=== PATIENT | male | born 1970 | race Two or more races ===

== ENCOUNTER 2024-09-15 13:44 | Inpatient (IN) | payer MEDICAID, OTHER ==
[~2024-09-15] VITALS: Ht 172.7 cm; Wt 79.0 kg
--- NOTE | 2024-09-15 14:47 | ED.PDOC ---
SOB-HPI HPI Comments 54 Y M, presents to the ED with CC of shortness of breath. Patient states that he has been experiencing SOB, with associated chest tightness x3day. Patient describes, the chest pain as tightness that gets worse with light exertion such as walking. Patient states, that he was just diagnosed with a blood clot at [facility] a week ago; and is currently taking Eliquis. Patient denies any fever, chills, body aches, abdominal pain, or N/V/D. Time Seen by MD: 02:00 Reviewed notes: Nurses Notes, Medications, Allergies Information Source: Patient Mode of Arrival: Ambulatory Severity: Mild Timing: Days Duration: Since onset Context: With Light Exertion History of: None Prehospital treatment: None Modifying Factors: Exertion Associated Signs and Symptoms: Chest Pain Quality: Tightness Radiation: No Radiation Past Medical History PAST MEDICAL HISTORY: Denies Surgical History: Denies all surgeries Family History Family History: Unknown Social History Smoker: Quit Less Than 1 Year Alcohol: Denies ETOH Use Drugs: Denies Drug Use Lives In: Home Constitutional: denies: chills, diaphoresis, fatigue, fever, malaise, sweats, weakness, others EENTM: denies: blurred vision, double vision, ear bleeding, ear discharge, ear drainage, ear pain, ear ringing, eye pain, eye redness, hearing loss, mouth pain, mouth swelling, nasal discharge, nose bleeding, nose congestion, nose pain, photophobia, tearing, throat pain, throat swelling, voice changes, others Respiratory: reports: shortness of breath; denies: cough, hemoptysis, orthopnea, SOB at rest, SOB with excertion, stridor, wheezing, others Cardiovascular: reports: chest pain; denies: dizzy spells, diaphoresis, Dyspnea on exertion, edema, irregular heart beat, left arm pain, lightheadedness, palpitations, PND, syncope, others Gastrointestinal: denies: abdomen distended, abdominal pain, blood streaked bowels, constipated, diarrhea, dysphagia, difficulty swallowing, hematemesis, melena, nausea, poor appetite, poor fluid intake, rectal bleeding, rectal pain, vomiting, others Genitourinary: denies: burning, dysuria, flank pain, frequency, hematuria, incontinence, penile discharge, penile sore, pain, testicle pain, testicle swelling, urgency, others Neurological: denies: dizziness, fainting, headache, left sided numbness, left sided weakness, numbness, paresthesia, pre-existing deficit, right sided numbness, right sided weakness, seizure, speech problems, tingling, tremors, weakness, others Musculoskeletal: denies: back pain, gout, joint pain, joint swelling, muscle pain, muscle stiffness, neck pain, others Integumetry: denies: bruises, change in color, change in hair/nails, dryness, laceration, lesions, lumps, rash, wounds, others Allergic/Immunocompromised: denies: Difficulty Healing, Frequent Infections, Hi ves, Itching, others Hematologic/Lymphatic: denies: anemia, blood clots, easy bleeding, easy bruising, swollen glands, others Endocrine: denies: excessive hunger, excessive sweating, excessive thirst, excessive urination, flushing, intolerance to cold, intolerance to heat, unexplained weight gain, unexplained weight loss, others Psychiatric: denies: anxiety, bipolar disorder, depression, hopeless, panic disorder, schizophrenia, sleepless, suicidal, others All Other Systems: Reviewed and Negative Physical Exam General Appearance: Moderate Distress, Normal HEENT: Normal ENT Inspection, Pharynx Normal, TMs Normal Neck: Full Range of Motion, Non-Tender, Normal, Normal Inspection Respiratory: Chest Non-Tender, No Accessory Muscle Use, Other (Coarse breath sounds) Cardiovascular: No Edema, No JVD, No Murmur, No Gallop, Normal Peripheral Pulses, Regular Rate/Rhythm Breast Exam: Deferred Gastrointestinal: No Organomegaly, Non Tender, No Pulsatile Mass, Normal Bowel Sounds, Soft Genitalia: Deferred Pelvic: Deferred Rectal: Deferred Extremities: No calf tenderness, Normal capillary refill, Normal inspection, Normal range of motion, Non-tender, No pedal edema Musculoskeletal : Apperance: Normal Neurologic: Alert, 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 Was a procedure done?: No Differential Dx Differential Diagnosis: Anxiety, Asthma, Bronchitis, CHF, Hypertension, Pharyng itis, URI X-Ray, Labs, Meds, VS Vital Signs Date Time Temp Pulse Resp B/P (MAP) Pulse Ox O2 Delivery O2 Flow Rate FiO2 09/15/24 14:28 98.9 117 18 107/67 (80) 95 09/15/24 14:28 18 95 Room Air* 0 21 Lab Test 09/15/24 14:24 Range/Units White Blood Count Pending Red Blood Count Pending Hemoglobin Pending Hematocrit Pending Mean Corpuscular Volume Pending Mean Corpuscular Hemoglobin Pending Mean Corpuscular Hemoglobin Concent Pending Red Cell Distribution Width Pending Platelet Count Pending Mean Platelet Volume Pending Neutrophils (%) (Auto) Pending Lymphocytes (%) (Auto) Pending Monocytes (%) (Auto) Pending Basophils (%) (Auto) Pending Neutrophils # (Auto) Pending Lymphocytes # (Auto) Pending Monocytes # (Auto) Pending D-Dimer, Quantitative Pending Sodium Level Pending Potassium Level Pending Chloride Level Pending Carbon Dioxide Level Pending Anion Gap Pending Blood Urea Nitrogen Pending Creatinine Pending Glomerular Filtration Rate Calc Pending BUN/Creatinine Ratio Pending Serum Glucose Pending Calcium Level Pending Troponin I High Sensitivity Pending Patient alert. Continues to have shortness a breath. Tachycardia. Saturation pristine on room air. History of PE. Is taking blood thinner. Possibly will need CT angiogram. He is having increasing shortness a breath. Explained to the patient. Continue cardiac monitoring. Time of 1ST Reevaluation: 02:30 Reevaluation 1ST: Unchanged Patient Education/Counseling: Diagnosis, Treatment Family Education/Counseling: No Family Present Departure 1 Departure Time of Disposition: 14:54 Impression: Primary Impression: Pulmonary embolus Qualified Codes: I26.99 - Other pulmonary embolism without acute cor pulmonale Additional Impression: COPD (chronic obstructive pulmonary disease) Qualified Codes: J44.1 - Chronic obstructive pulmonary disease with (acute) exacerbation Disposition: ADMITTED INPATIENT Admit to: Med Surg Condition: Guarded Critical Care Note Critical Care Time?: Yes (45 min-critical care time only) Stability Stability form required: No Heart Score Heart Score: Heart Score Response (Comments) Value History N/A 0 EKG N/A 0 Age N/A 0 Risk Factors N/A 0 Troponin N/A 0 Total 0 I personally scribed for MARK CAMARILLO MD ([email or web address]) on 09/15/24 at 14:47. Electronically submitted by Nga Brito ([email or web address]). MARK CAMARILLO MD Sep 15, 2024 14:47
[2024-09-15 14:55] LABS: Hematocrit 16.4 % (41.0-53.0); Mean Corpuscular Hemoglobin 34.4 pg (28.0-32.0); Mean Corpuscular Hgb Conc. 34.3 g/dL (32.0-36.0); Mean Corpuscular Volume 100.2 fL (80.0-100.0); Platelet Count (auto) 113 10^3/uL (140-450); Red Blood Cells 1.64 10^6/uL (4.5-5.90); Red Cell Distribution Width 19.5 % (11.8-14.3)
[2024-09-15 14:59] LABS: Chloride 99 mmol/L (98-107); Potassium 4.6 mmol/L (3.5-5.1)
[2024-09-15 15:00] LABS: Anion Gap 9 (5-15); Calcium 9.4 mg/dL (8.7-10.4); Carbon Dioxide 25 mmol/L (20-31)
[2024-09-15 15:05] LABS: Blood Urea Nitrogen 21 mg/dL (9-23); Glucose 102 mg/dL (74-106); Sodium 133 mmol/L (136-145)
[2024-09-15 15:23] LABS: Hemoglobin 5.6 g/dL (13.5-17.5); White Blood Cell 178.3 10^3/uL (4.4-10.8)
[2024-09-15 15:24] LABS: Band Neutrophils % (manual) 0; Basophils % (manual) 0 (0.0-2.0); Eosinophils % (manual) 0 (0-7); Metamyelocytes % 0; Promyelocytes % 0; Reactive Lymphocytes 0
[2024-09-15] MEDS: SODIUM CHLORIDE 0.9% 1,000 ML IV ONE ×2 (15:53→16:17)
[2024-09-15 16:03] VITALS: PULSE 104; RESP 18; O2SAT 95
[2024-09-15] MEDS: SULFAMETH-TRIMETH 80/16MG-ML 15 ML in D5W 5% 500 ML IV ONE (16:55)
[2024-09-15 17:05] LABS: Blast Cells 28; Lymphocytes % (manual) 36 (10.0-50.0); Monocytes % (manual) 15 (0-12); Myelocytes % 11
--- NOTE | 2024-09-15 17:07 | DVH ---
INDICATION: pe Comparison: None available TECHNIQUE: Multidetector CTA of the chest was performed of the chest with 100 cc of intravenous contr ast. PULMONARY ANGIOGRAPHY PROTOCOL was utilized using a bolus-tracking technique centered on the jase n pulmonary artery. Axial, coronal and sagittal multiplanar and MIP reformats were performed. Radiation Dose Information: CT Dose: CTDI volume is 14.48 mGy. Dose-length product is 561.05 mGy*cm The dose indicators for CT are the volume Computed Tomography (CT) Dose Index (CTDIvol) and the Dose Length Product (DLP), and are measured in units of mGy and mGy-cm, respectively. These indicators are not patient dose, but values generated from the CT scanner acquisition factors. The report includes radiation exposure data for exposures received during this examination. Findings: Pulmonary artery: Normal caliber of the pulmonary artery. No large central or large segmental pulmo nary embolism. Lower neck: Normal thyroid. Lungs: No focal consolidation. Left lower lobe 0.8 cm ground-glass nodule. Subtle tree-in-bud type o pacity at the inferior aspect of the right upper lobe. Heart/Vascular Structures: Normal heart size. Normal caliber and enhancement of the aorta. Lymph Nodes: Mediastinal, right hilar, and bilateral axillary lymphadenopathy. Pleura: No pleural effusion or significant pneumothorax. Musculoskeletal: No acute osseous abnormality. Upper abdomen: Small hiatal hernia.. IMPRESSION: 1. No pulmonary embolism. 2. No thoracic aortic dissection or aneurysm. 3. Left lower lobe ground-glass nodule measuring 0.8 cm. Recommend follow-up CT at 6-12 months per Fl eischner criteria. 4. Right upper lobe tree-in-bud type opacities, most suggestive of infectious / inflammatory etiology . 5. Mediastinal, right hilar, and bilateral axillary lymphadenopathy. Could be reactive, with malignan cy not excluded. 6. Small hiatal hernia. HS:Y
[2024-09-15 17:08] LABS: COVID19 ANTIGEN SOFIA FIA NEGATIVE (NEGATIVE); Rapid Influenza A Negative (Negative); Rapid Influenza B Negative (Negative)
[2024-09-15 17:10] LABS: Platelet Estimate Decreased
[2024-09-15] MEDS: ACETAMINOPHEN 500 MG TAB or CAP PO ONE (17:35)
[2024-09-15] MEDS: IBUPROFEN 800 MG TAB PO ONE (19:02)
--- NOTE | 2024-09-15 19:02 | DVHSR ---
APPROVED REPORT EXAM: Two-dimensional and M-mode echocardiogram with Doppler and color Doppler. Blood Pressure: 107/67 mmHg INDICATION PE RISK FACTORS Height: 68, Weight: 174 DIMENSIONS LVDd4.9 (3.8-5.7cm)LA (2D)4.1 (1.9-4.0cm)Aortic Root3.6 (2.0-3.7cm) LVDs3.1 (2.5-4.0cm)LA (MM) (1.9-4.0cm)Aortic Cusp Exc1.9 (1.5-2.0cm) EF (%) 66.0 (55-70%)Rt. Atrium3.5 (1.9-4.0cm)Asc. Aorta cm IVSd1.1 (0.7-1.1cm)RV (D) (1.8-2.4cm) PWd1.1 (0.7-1.1cm) Mitral Valve MitralMitral Stenosis E wave1.41m/sMV Mean GR.mmHg A wave0.90m/sMV Peak GR.82mmHg E/A ratio1.62D MVAcm2 DECEL [id number] 1/2 Timems Aortic Valve Aortic ValveAortic Stenosis V11.33m/Anika Mean GR.7mmHg V21.81m/Anika Peak GR.13mmHg LVOT Diameter2.3 (1.8-2.4cm)Doppler AVA3.05cm2 Pulmonic Valve V21.34m/s Tricuspid Valve TR Velocity2.82m/s [id number] LEFT VENTRICLE The left ventricle is normal size. There is normal left ventricular wall thickness. Left ventricle systolic function is normal. The Ejection Fraction is 60-65%. No regional wall motion abnormalities. RIGHT VENTRICLE The right ventricle structure and function is normal. ATRIA The left atrium is borderline dilated. The right atrium size is normal. MITRAL VALVE The mitral valve is normal in structure and function. Mitral regurgitation is trace to mild. PULMONIC VALVE The pulmonic valve is normal in structure and function. TRICUSPID VALVE The tricuspid valve is normal in structure and function. There is trace to mild tricuspid regurgitation. Right ventricular systolic pressure is 40-50 mmHg. AORTIC VALVE The aortic valve is trileaflet. No aortic regurgitation is present. No significant aortic valve stenosis. GREAT VESSELS The aortic root is normal size. PERICARDIAL EFFUSION There is a no pericardial effusion. Conclusion Left ventricle size and systolic function are normal. The right ventricle structure and function are normal. No significant valvular disease. PA systolic pressure is estimated at 42 mmHg.
[2024-09-15 19:30] VITALS: PULSE 89; RESP 18; O2SAT 95
[2024-09-15] MEDS ORDERED: VANCOMYCIN PER PHARMACY 0 MG IV SCH (22:15)
[2024-09-15] MEDS ORDERED: NITROGLYCERIN 0.4 MG SL TAB SL PRN (22:15)
[2024-09-15] MEDS ORDERED: MORPHINE SULFATE INJ 2 MG/ml SYRG IV PRN (22:15)
[2024-09-15] MEDS ORDERED: ONDANSETRON HCL 4 MG/2 ML VIAL IV PRN (22:15)
[2024-09-15] MEDS ORDERED: DOCUSATE SOD 100 MG CAP PO PRN (22:15)
[2024-09-15 22:22] VITALS: BP 95/68; PULSE 86; RESP 21; TEMP 98.8
[2024-09-15 22:42] VITALS: BP 106/67; PULSE 83; RESP 15; TEMP 98.2
[2024-09-15] MEDS ORDERED: VANCOMYCIN 1GM/250mL NS or D5W KIT IV SCH (22:45)
[2024-09-15 22:52] LABS: Hematocrit 15.6 % (41.0-53.0); Mean Corpuscular Hemoglobin 32.7 pg (28.0-32.0); Mean Corpuscular Hgb Conc. 32.4 g/dL (32.0-36.0); Platelet Count (auto) 78 10^3/uL (140-450); Red Blood Cells 1.55 10^6/uL (4.5-5.90); Red Cell Distribution Width 19.9 % (11.8-14.3)
[2024-09-15 23:00] LABS: Hemoglobin 5.1 g/dL (13.5-17.5)
[2024-09-15 23:01] LABS: Band Neutrophils % (manual) 0; Basophils % (manual) 0 (0.0-2.0); Eosinophils % (manual) 0 (0-7); Metamyelocytes % 0; Myelocytes % 0; Promyelocytes % 0; Reactive Lymphocytes 0; White Blood Cell 158.7 10^3/uL (4.4-10.8)
[2024-09-16] VITALS (24 sets, daily range): BP systolic 92–116; BP diastolic 54–82; PULSE 75–113; RESP 11–26; TEMP 97.5–98.9; O2SAT 91–100
[2024-09-16] MEDS: SODIUM CHLORIDE 0.9% 1,000 ML IV SCH (00:05)
[2024-09-16 00:21] LABS: Platelet Estimate Decreased
[2024-09-16 00:22] LABS: Anisocytosis Slight; Blast Cells 79; Lymphocytes % (manual) 13 (10.0-50.0); Monocytes % (manual) 3 (0-12); Stomatocytes Few
[2024-09-16 00:23] LABS: Macrocytosis Slight
--- NOTE | 2024-09-16 01:20 | DVHHP2 ---
[facility] 09/16/24 0120: History of Present Illness Reason for Visit: Shortness of breath History of Present Illness 54-year-old male with out pertinent medical History Presents with complaints of shortness of breath and chest tightness times three days. Patient recently went on September 12, 2024 to [facility] With complaints of bilateral leg pain. At such Time Bilateral lower extremity vascular ultrasound was negative for DVT. At some point patient reported history of dvt on eliquis. During the emergency department evaluation, Lab work demonstrates W178.3,Hgb 5.6, HCT 16.4, PLT 113. CT angio of the chest Negative for PE. However does have a left lower lobe ground glass nodule; Right upper lobe tree in bud opacity, Suggesting infectious/inflammatory etiology. Patient denies past family history or personal diagnosis of cancer or leukemia. Denies nausea, vomiting, Diarrhea, hematemesis, hematochezia, melena. No previous follow up with PCP. Smoke: <1 pack per day ALCOHOL: none Drugs: None Lives: with Family Review of Systems Constitutional: Yes: Fever, Chills, Sweats, Other (Ill Appearing) Eyes: No: Pain, Vision change, Conjunctivae inflammation, Eyelid inflammation, Other, Redness ENT: No: Ear pain, Ear discharge, Nose pain, Nose discharge, Nose congestion, Mouth pain, Mouth swelling, Throat pain, Throat swelling, Other Respiratory: Shortness of breath, SOB with excertion; No: Cough, Dry, Wheezing, Hemoptysis, Pleuritic Pain, Sputum, Wheezing, Other Cardiovascular: Chest Pain; No: Palpitations, Orthopnea, Paroxysmal Noc. Dyspnea, Edema, Lt Headedness, Other Gastrointestinal: No: Nausea, Vomiting, Abdominal Pain, Diarrhea, Constipation, Melena, Hematochezia, Other Genitourinary: No Dysuria, No Frequency, No Incontinence, No Hematuria, No Retention, No Other Musculoskeletal: No: other, neck pain, shoulder pain, arm pain, back pain, hand pain, leg pain, foot pain Skin: No: Rash, Lesions, Jaundice, Bruising, Other Neurological: No: Weakness, Numbness, Incoordination, Change in speech, Confusion, Seizures, Other Allergies: Coded Allergies: Penicillins (Verified Allergy, Unknown, 09/15/24) Medications Current Medications Medications Dose Ordered Sig/Flor Route Start Time Stop Time Status Last Admin Dose Admin Sodium Chloride 1,000 ml @ 100 mls/hr Q10H IV 09/15/24 22:15 09/16/24 00:05 100 MLS/HR Docusate Sodium 100 mg BIDPRN PRN PO 09/15/24 22:15 Acetaminophen 650 mg Q6HP PRN PO 09/15/24 22:15 Acetaminophen/ Hydrocodone Bitart 1 tab Q4HP PRN PO 09/15/24 22:15 Ondansetron HCl 4 mg Q4HP PRN IV 09/15/24 22:15 Nitroglycerin 0.4 mg Q5MINP PRN SL 09/15/24 22:15 Morphine Sulfate 2 mg Q30M PRN IV 09/15/24 22:15 Vancomycin HCl 0 ml @ 0 mls/hr UD IV 09/15/24 22:15 UNV Piperacillin Sod/ Tazobactam Sod 100 ml @ 100 mls/hr Q8HR IV 09/16/24 06:00 UNV Albuterol 2.5 mg Q4HR NEB 09/16/24 02:00 Ipratropium [place] 0.5 mg Q4HR NEB 09/16/24 02:00 Exam Vital Signs Vital Signs Date Time Temp Pulse Resp B/P (MAP) Pulse Ox O2 Delivery O2 Flow Rate FiO2 09/15/24 22:42 98.2 83 15 106/67 98.2 09/15/24 19:00 93 09/15/24 16:03 Room Air* 0 21 General Appearance: Alert, Oriented X3, Cooperative, moderate distress, Other (ill appearing) HEENT: Atraumatic, PERRLA, EOMI Respiratory: Normal air movement Cardiovascular: Regular rate, Normal S1, Normal S2 Abdominal: Normal bowel sounds, Soft, No tenderness Extremities: No clubbing, No cyanosis, No edema Skin: No rashes, No breakdown Neuro: Normal speech, Strength at 5/5 X4 ext Psych/Mental Status: Mental status NL, Mood NL Labs/Xrays Labs Test 09/15/24 22:01 09/15/24 16:00 09/15/24 15:47 09/15/24 14:24 Range/Units White Blood Count 158.7 *H 4.4-10.8 10^3/uL Red Blood Count 1.55 L 4.5-5.90 10^6/uL Hemoglobin 5.1 *L 13.5-17.5 g/dL Hematocrit 15.6 L 41.0-53.0 % Mean Corpuscular Volume 101.0 H 80.0-100.0 fL Mean Corpuscular Hemoglobin 32.7 H 28.0-32.0 pg Mean Corpuscular Hemoglobin Concent 32.4 32.0-36.0 g/dL Red Cell Distribution Width 19.9 H 11.8-14.3 % Platelet Count 78 L 140-450 10^3/uL Mean Platelet Volume 7.3 6.9-10.8 fL Neutrophils (%) (Auto) 37.0-80.0 % Lymphocytes (%) (Auto) 10.0-50.0 % Monocytes (%) (Auto) 0.0-12.0 % Basophils (%) (Auto) 0.0-2.0 % Neutrophils # (Auto) 1.6-8.6 10 ^3/uL Lymphocytes # (Auto) 0.4-5.4 10 ^3/uL Monocytes # (Auto) 0-1.3 10 ^3/uL Differential Total Cells Counted 100.0 100 Neutrophils % (Manual) 5 L 37.0-80.0 Band Neutrophils % (Manual) 0 Lymphocytes % (Manual) 13 10.0-50.0 Monocytes % (Manual) 3 0-12 Eosinophils % (Manual) 0 0-7 Basophils % (Manual) 0 0.0-2.0 Metamyelocytes % (manual) 0 Myelocytes % (Manual) 0 Promyelocytes % (Manual) 0 Blast Cells % (Manual) 79 Reactive Lymphocytes 0 Platelet Estimate Decreased Anisocytosis (manual) Slight Macrocytosis Slight Stomatocytes Few Schistocytes Few Lactic Acid Level 1.5 0.4-2.0 mmol/L Influenza Type A Antigen Negative Negative Influenza Type B Antigen Negative Negative SARS-CoV-2 Antigen (Rapid) Negative NEGATIVE D-Dimer, Quantitative > 35.20 H 0.0-0.49 mg/L FEU Sodium Level 133 L 136-145 mmol/L Potassium Level 4.6 3.5-5.1 mmol/L Chloride Level 99 98-107 mmol/L Carbon Dioxide Level 25 20-31 mmol/L Anion Gap 9 5-15 Blood Urea Nitrogen 21 9-23 mg/dL Creatinine 1.31 H 0.700-1.30 mg/dL Glomerular Filtration Rate Calc 65 >90 mL/min BUN/Creatinine Ratio 16.0 10.0-20.0 Serum Glucose 102 74-106 mg/dL Calcium Level 9.4 8.7-10.4 mg/dL Troponin I High Sensitivity 6 </=54 ng/L Assessment/Plan Assessment/Plan Severe Leukocytosis Acute anemia Right upper lobe opacity. Left lower lobe nodule Plan Admit telemetry Hematology/oncology consult. Peripheral smear. LDH, folate, B12, TSH in AM. Monitor H&H. Transfuse PRBCs to maintain Hgb >7. Pulmonology consult. Bronchodilators. As needed supplemental O2 to maintain O2 saturation greater Than 93%. RT monitoring. Blood Cultures pending. Occult stool pending. GI ppx pepcid / DVT ppx SCDs Plan discussed with: Patient My Orders Orders - ELISA MAR NP Procedure Category Date Status Time Admit ADMIT 09/15/24 Transmitted 22:06 Code Status CODE 09/15/24 Transmitted 22:06 Vital Signs HEATHER 09/15/24 In Process 22:06 Review Orders With HEATHER 09/15/24 In Process Adm. 22:06 Encourage Activity As HEATHER 09/15/24 In Process Tolerate 22:06 Consistent DIET 09/16/24 Transmitted Carb(Ccho)Diabetes Breakfast Sodium Chloride 0.9% PHA 09/15/24 In Process 22:15 Oxygen By Face Mask RT 09/15/24 Transmitted 22:06 Docusate Sodium PHA 09/15/24 In Process Capsule (Colace 22:15 Acetaminophen Tablet PHA 09/15/24 In Process (Tylenol Tablet) 22:15 Notify Of Changes HEATHER 09/15/24 In Process From Base 22:06 Advance Directive HEATHER 09/15/24 In Process 22:06 Basic Metabolic Panel LAB 09/17/24 Verified 05:00 Basic Metabolic Panel LAB 09/18/24 Verified 05:00 Basic Metabolic Panel LAB 09/19/24 Verified 05:00 Basic Metabolic Panel LAB 09/20/24 Verified 05:00 Basic Metabolic Panel LAB 09/21/24 Verified 05:00 Basic Metabolic Panel LAB 09/22/24 Verified 05:00 Basic Metabolic Panel LAB 09/23/24 Verified 05:00 Complete Blood Count LAB 09/16/24 Logged 05:00 Complete Blood Count LAB 09/17/24 Verified 05:00 Complete Blood Count LAB 09/18/24 Verified 05:00 Complete Blood Count LAB 09/19/24 Verified 05:00 Complete Blood Count LAB 09/20/24 Verified 05:00 Complete Blood Count LAB 09/21/24 Verified 05:00 Complete Blood Count LAB 09/22/24 Verified 05:00 Complete Blood Count LAB 09/23/24 Verified 05:00 Patient Condition ORDERS 09/15/24 Transmitted 22:06 Allergies HEATHER 09/15/24 In Process 22:06 Hydrocodone-Acet PHA 09/15/24 In Process 5/325mg Tab ([place] 22:15 Ondansetron Hcl PHA 09/15/24 In Process (Zofran) 22:15 Sequential HEATHER 09/15/24 In Process Compression Device Nitroglycerin PHA 09/15/24 In Process Sublingual (Ntrostat 22:15 Morphine Sulfate PHA 09/15/24 In Process Injection 22:15 Stat Ekg For Chest HEATHER 09/15/24 In Process Pain 22:06 Notify Md Of Changes HEATHER 09/15/24 In Process From Base 22:06 Home Health Lpn For HEATHER 09/15/24 In Process 24 Hours 22:06 Emergency Dysrhythmia HEATHER 09/15/24 In Process Protocol 22:06 Rhythm Strips Once HEATHER 09/15/24 In Process Every Shift 22:06 Oxygen By Nasal RT 09/15/24 Transmitted Cannula 22:06 * Hematology/Oncology CONS 09/15/24 Transmitted Consult 22:06 *Consult CONS 09/15/24 Transmitted / 22:06 * Infectious [place]- CONS 09/15/24 Transmitted [place] 22:06 Communication Order ORDERS 09/15/24 Transmitted 22:06 Hemoglobin & LAB 09/16/24 Logged Hematocrit 12:00 Hemoglobin & LAB 09/16/24 Logged Hematocrit 18:00 Hemoglobin & LAB 09/17/24 Verified Hematocrit 00:00 Hemoglobin & LAB 09/17/24 Verified Hematocrit 06:00 Stool Occult Blood LAB 09/15/24 Logged 22:06 Vancomycin Per PHA 09/15/24 Pending Pharmacy 22:15 Piperacillin-Tazob PHA 09/16/24 Pending 3.375gm (Zosyn 3.375g 06:00 Albuterol Medneb PHA 09/16/24 In Process (Ventolin Medneb) 02:00 Ipratropium Medneb PHA 09/16/24 In Process (Atrovent Medneb) 02:00 Hernandez Stain Slide LAB 09/15/24 Logged 22:49 Folate (Folic Acid) LAB 09/16/24 Logged 04:00 Lactate Dehydrogenase LAB 09/16/24 Logged 04:00 Thyroid Stimulating LAB 09/16/24 Logged Hormone 04:00 Comprehensive LAB 09/16/24 Logged Metabolic Panel 04:00 Date of Service: Sep 16, 2024 Billing Provider: ROBBIE JOHANSEN MD Common Visit Codes: NOT BILLABLE ROBBIE JOHANSEN MD 09/16/24 1034: Review of Systems Allergies: Coded Allergies: Penicillins (Verified Allergy, Unknown, 09/15/24) Additional Comments Additional Comments Additional Comments Patient's chart is reviewed and discussed with the nurse practitioner over night. I agree with the nurse practitioner's evaluation, documentation, assessment and care plan as outlined. We will obtain oncology/hematology consultation and make further plans as deemed appropriate. ELISA MAR NP Sep 16, 2024 01:20 ROBBIE JOHANSEN MD Sep 16, 2024 10:34
[2024-09-16] MEDS: ALBUTEROL SULF 2.5 MG/0.5ML(0.5%) NEB SOLN NEB SCH (02:00)
[2024-09-16] MEDS: IPRATROPIUM BROM 0.5 MG/2.5ML INH SOL NEB SCH (02:00)
[2024-09-16] MEDS ORDERED: FUROSEMIDE 20 MG/2 ML VIAL IV PRN (07:00)
[2024-09-16] MEDS: ACETAMINOPHEN 325 MG TAB PO PRN (07:15)
--- NOTE | 2024-09-16 08:40 | DVH ---
CHEST RADIOGRAPH Indication: dyspnea Technique: Single frontal view of the chest was obtained COMPARISON: None FINDINGS: Lines and Tubes: None Lungs: Clear Pleura: No effusion. No pneumothorax. Cardiomediastinal contours: Unremarkable Bones: Unremarkable IMPRESSION: No acute disease.
[2024-09-16 08:51] LABS: Mean Corpuscular Hemoglobin 30.3 pg (28.0-32.0); Platelet Count (auto) 70 10^3/uL (140-450)
[2024-09-16 08:55] LABS: Alanine Aminotransferase 26 U/L (7-40); Anion Gap 9 (5-15); BUN/Creatinine Ratio 18.1 (10.0-20.0); Blood Urea Nitrogen 21 mg/dL (9-23); Carbon Dioxide 23 mmol/L (20-31); Chloride 101 mmol/L (98-107); Potassium 4.2 mmol/L (3.5-5.1)
[2024-09-16 08:56] LABS: Albumin 3.4 g/dL (3.2-4.8); Bilirubin, Total 0.6 mg/dL (0.2-1.0); Total Protein 6.7 g/dL (5.7-8.2)
[2024-09-16 08:57] LABS: Alkaline Phosphatase 128 U/L (46-116); Aspartate Aminotransferase 99 U/L (13-40); Calcium 8.6 mg/dL (8.7-10.4); Glucose 117 mg/dL (74-106); Hematocrit 26.4 % (41.0-53.0); Hemoglobin 8.6 g/dL (13.5-17.5); Mean Corpuscular Hgb Conc. 32.7 g/dL (32.0-36.0); Mean Corpuscular Volume 92.7 fL (80.0-100.0); Red Blood Cells 2.85 10^6/uL (4.5-5.90); Red Cell Distribution Width 18.6 % (11.8-14.3); Sodium 133 mmol/L (136-145)
[2024-09-16 09:04] LABS: Thyroid Stimulating Hormone 2.15 uIU/mL (0.55-4.78)
[2024-09-16 09:14] LABS: Band Neutrophils % (manual) 0; Basophils % (manual) 0 (0.0-2.0); Eosinophils % (manual) 0 (0-7); Metamyelocytes % 0; Myelocytes % 0; Promyelocytes % 0; Reactive Lymphocytes 0; White Blood Cell 109.5 10^3/uL (4.4-10.8)
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
[2024-09-16] MEDS: PIPERACILLIN-TAZOB 3.375GM 100 ML IV SCH (10:05)
[2024-09-16] MEDS: MIDAZOLAM HCL 2MG/2ML 2ml VIAL (1mg/ml) IV ONE (10:45)
[2024-09-16] MEDS: ALLOPURINOL 100 MG TAB PO SCH (10:54)
[2024-09-16] MEDS: hydroxyUREA 500 MG CAP PO SCH (10:55)
[2024-09-16] MEDS ORDERED: HALOPERIDOL LACTATE 5 MG/ML INJ VIAL IM PRN (11:00)
[2024-09-16 11:25] LABS: INR 1.27 (0.9-1.15); Partial Thromboplastin Time 30.6 SEC (24.5-34.5); Prothrombin Time 13.2 sec (9.3-11.8)
[2024-09-16] MEDS: VANCOMYCIN 1GM/250ML KIT 250 ML IV SCH (11:27)
[2024-09-16 11:41] LABS: Blast Cells 81; Lymphocytes % (manual) 15 (10.0-50.0); Monocytes % (manual) 2 (0-12); Platelet Estimate Decreased
[2024-09-16] MEDS: LIDOCAINE 2%HCL (LOCAL ANESTH.) INJ 10ml MDV ONE (12:02)
--- NOTE | 2024-09-16 12:43 | DVH ---
CT PELVIS WO CONTRAST, HISTORY: BONE MARROW BIOPSY COMPARISON: None PROCEDURE: Informed consent and time-out was performed before the procedure. Conscious sedation was p erformed by the interventional radiology nurse. The pelvic bone was marked, sterilized, draped, and l ocally anesthetized using approximately 8 ml of 1% lidocaine. Axial CT images were used for localizat ion. A 11 gauge [place] Bone Biopsy kit was used to take 15 mL aspirate and 1 core sample. The biop sy needle was then removed. No immediate complications noted. FINDINGS: Axial CT images demonstrates biopsy needle within the left posterior pelvic bone. IMPRESSION: Successful CT-guided biopsy of the pelvic bone .
[2024-09-16] MEDS: fentaNYL CITRATE 100 MCG/2 ML VL IV ONE (13:17)
[2024-09-16 13:59] LABS: Urine Bacteria None Seen /hpf (None Seen)
--- NOTE | 2024-09-16 14:11 | ECG ---
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
[2024-09-16 14:19] LABS: Hemoglobin 9.2 g/dL (13.5-17.5)
[2024-09-16 14:22] LABS: Hematocrit 28.9 % (41.0-53.0)
[2024-09-16 14:28] LABS: Urine Blood 1+ /uL (Negative); Urine Clarity Clear (Clear); Urine Color Light-Yellow (Yellow); Urine Protein, UAD 1+ (Negative); Urine Specific Gravity 1.019 (1.001-1.035); Urine Squamous Epithelial Cell None Seen /hpf (<5); Urine Urobilinogen Normal (Negative); Urine WBC 1 /hpf (0 - 3); Urine pH 5.5 (5.0-9.0)
[2024-09-16] MEDS: VANCOMYCIN 1GM/250ML KIT 250 ML IV ONE (14:55)
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
[2024-09-16 18:32] LABS: COVID19 ANTIGEN SOFIA FIA NEGATIVE (NEGATIVE)
[2024-09-16 20:16] LABS: Hematocrit 24.4 % (41.0-53.0)
[2024-09-16 20:22] LABS: Hemoglobin 8.1 g/dL (13.5-17.5)
[2024-09-16] MEDS: HYDROcodone-ACET 5/325MG TAB PO PRN (22:17)
--- NOTE | 2024-09-16 22:57 | DVHINCON2 ---
Date of service: Sep 16, 2024 Referring Physician Jarrod Seymour MD Reason for Consultation Pneumonia, pulmonary nodule. History of Present Illness A 54-year-old man with past medical history history of DVT, on Eliquis, who presents today with c/o shortness of breath and chest tightness x3 days. Patient recently went on September 12, 2024 to [facility], [place] with complaints of bilateral leg pain. Vascular ultrasound of BLE was negative for DVT at that time. CT angio of the chest done in ED was negative for PE; however, showed a left lower lobe ground glass nodule; right upper lobe tree in bud opacity suggesting infectious/inflammatory etiology. Patient was admitted for further care and pulmonary consultation is requested for evaluation and management due to these findings. Review of Systems: 14-point review of systems negative unless otherwise noted above. Past Medical History: Hx DVT, on Eliquis Past Surgical History: Denies Medications: Reviewed. Allergies: Penicillins. Family History: No family history of premature CAD. No family history of lung disorders. Social History: Smoker, <1 pack per day. No alcohol or illicit drug use. Family History: Patient reports no known family medical history. Allergies: Coded Allergies: Penicillins (Verified Allergy, Unknown, 09/15/24) Home Meds No Active Prescriptions or Reported Meds Current Medications Current Medications Medications (Trade) Dose Ordered Sig/Flor Route PRN Reason Start Time Stop Time Status Last Admin Piperacillin Sod/ Tazobactam Sod 100 ml @ 100 mls/hr Q8HR IV 09/16/24 06:00 09/16/24 22:18 Albuterol (Ventolin Medneb) 2.5 mg Q4HR NEB 09/16/24 02:00 09/16/24 19:32 Ipratropium [place] (Atrovent Medneb) 0.5 mg Q4HR NEB 09/16/24 02:00 09/16/24 19:32 Furosemide (Lasix Injection) 20 mg ONCE PRN IV Signs of fluid overload, SOB 09/16/24 07:00 Vancomycin HCl 250 ml @ 250 mls/hr Q1H IV 09/16/24 09:30 09/16/24 11:29 DC 09/16/24 14:56 Allopurinol (Zyloprim Tablet) 300 mg DAILY PO 09/16/24 10:00 09/16/24 10:54 Hydroxyurea (Hydrea Capsule) 1,000 mg BID PO 09/16/24 10:00 09/16/24 16:47 DC 09/16/24 10:55 Haloperidol Lactate (Haldol) 2.5 mg Q4HR PRN IM AGITATION 09/16/24 11:00 09/16/24 11:12 DC Hydroxyurea (Hydrea Capsule) 500 mg BID PO 09/17/24 10:00 Vital Signs Vital Signs Date Time Temp Pulse Resp B/P (MAP) Pulse Ox O2 Delivery O2 Flow Rate FiO2 09/16/24 21:00 97.8 101 18 92/54 (67) 91 97.8 09/16/24 19:32 Room Air 09/16/24 19:32 0 21 Physical Exam Gen.: Patient lying in bed in no apparent distress. Breathing on room air. Head: Normocephalic, atraumatic. Eyes: EOMI/PERRLA. Ears: Normal hearing. Normal anatomy. Neck/trachea: Trachea midline, supple. Nose: Normal external anatomy. Mouth: Moist mucous membranes. Chest: Decreased air entry bilaterally. No wheezing or rhonchi. Cardiovascular: Positive S1, positive S2. Regular rate and rhythm. Abdomen: Positive bowel sounds in all 4 quadrants. Soft, non-tender, non- distended. : Deferred. Rectal: Deferred. Skin: Warm, dry. Intact. Extremities: 2+ radial pulses bilaterally. No lower extremity edema. Neuro: Awake, alert, oriented x3. No gross motor or sensory deficits. Cranial nerves II through XII intact. Gait not assessed. Labs/Diagnostic Data Labs Test 09/16/24 19:58 09/16/24 18:31 09/16/24 15:53 09/16/24 13:58 Range/Units Hemoglobin 8.1 L 13.5-17.5 g/dL Hematocrit 24.4 #L 41.0-53.0 % SARS-CoV-2 Antigen (Rapid) Negative NEGATIVE Stool Occult Blood Negative Negative Stool Occult Blood Sample #3 Negative Urine Color Light-yellow Yellow Urine Clarity Clear Clear Urine pH 5.5 5.0-9.0 Urine Specific [place] 1.019 1.001-1.035 Urine Protein 1+ H Negative Urine Ketones Negative Negative Urine Blood 1+ H Negative /uL Urine Nitrite Negative Negative Urine Bilirubin Negative Negative Urine Urobilinogen Normal Negative mg/dL Urine Leukocyte Esterase Negative Negative /uL Urine RBC 2 0 - 3 /hpf Urine WBC 1 0 - 3 /hpf Urine Squamous Epithelial Cells None seen <5 /hpf Urine Bacteria None seen None Seen /hpf Urine Glucose Normal Normal mg/dL Test 09/16/24 10:31 09/16/24 09:45 09/16/24 08:10 09/15/24 22:01 Range/Units Lactic Acid Level 1.7 0.4-2.0 mmol/L White Blood Count 109.5 #*H 4.4-10.8 10^3/uL Red Blood Count 2.85 L 4.5-5.90 10^6/uL Mean Corpuscular Volume 92.7 # 80.0-100.0 fL Mean Corpuscular Hemoglobin 30.3 28.0-32.0 pg Mean Corpuscular Hemoglobin Concent 32.7 32.0-36.0 g/dL Red Cell Distribution Width 18.6 H 11.8-14.3 % Platelet Count 70 L 140-450 10^3/uL Mean Platelet Volume 7.3 6.9-10.8 fL Neutrophils (%) (Auto) 37.0-80.0 % Lymphocytes (%) (Auto) 10.0-50.0 % Monocytes (%) (Auto) 0.0-12.0 % Basophils (%) (Auto) 0.0-2.0 % Neutrophils # (Auto) 1.6-8.6 10 ^3/uL Lymphocytes # (Auto) 0.4-5.4 10 ^3/uL Monocytes # (Auto) 0-1.3 10 ^3/uL Differential Total Cells Counted 100.0 100 Neutrophils % (Manual) 2 L 37.0-80.0 Band Neutrophils % (Manual) 0 Lymphocytes % (Manual) 15 10.0-50.0 Monocytes % (Manual) 2 0-12 Eosinophils % (Manual) 0 0-7 Basophils % (Manual) 0 0.0-2.0 Metamyelocytes % (manual) 0 Myelocytes % (Manual) 0 Promyelocytes % (Manual) 0 Blast Cells % (Manual) 81 Reactive Lymphocytes 0 Platelet Estimate Decreased Prothrombin Time 13.2 H 9.3-11.8 sec Prothrombin Time INR 1.27 H 0.9-1.15 Activated Partial Thromboplast Time 30.6 24.5-34.5 SEC Sodium Level 133 L 136-145 mmol/L Potassium Level 4.2 3.5-5.1 mmol/L Chloride Level 101 98-107 mmol/L Carbon Dioxide Level 23 20-31 mmol/L Anion Gap 9 5-15 Blood Urea Nitrogen 21 9-23 mg/dL Creatinine 1.16 0.700-1.30 mg/dL Glomerular Filtration Rate Calc 75 >90 mL/min BUN/Creatinine Ratio 18.1 10.0-20.0 Serum Glucose 117 H 74-106 mg/dL Uric Acid 6.1 3.7-9.2 mg/dL Calcium Level 8.6 L 8.7-10.4 mg/dL Total Bilirubin 0.6 0.2-1.0 mg/dL Aspartate Amino Transferase (AST) 99 H 13-40 U/L Alanine Aminotransferase (ALT) 26 7-40 U/L Alkaline Phosphatase 128 H 46-116 U/L Lactate Dehydrogenase 2946 H 120-246 U/L Total Protein 6.7 5.7-8.2 g/dL Albumin 3.4 3.2-4.8 g/dL Vitamin B12 Level 500 211-911 pg/mL Folic Acid 11.40 >5.38 ng/mL Thyroid Stimulating Hormone (TSH) 2.15 0.55-4.78 uIU/mL Anisocytosis (manual) Slight Macrocytosis Slight Stomatocytes Few Schistocytes Few Test 09/15/24 15:47 09/15/24 14:24 Range/Units Influenza Type A Antigen Negative Negative Influenza Type B Antigen Negative Negative D-Dimer, Quantitative > 35.20 H 0.0-0.49 mg/L FEU Troponin I High Sensitivity 6 </=54 ng/L Microbiology Date/Time Source Procedure Growth Status 09/15/24 16:00 Blood Blood Culture - Preliminary NO GROWTH AFTER 24 HOURS OF INCUBATION. Resulted Assessment Impression: Pneumonia, likely gram negative Pulmonary nodule , LLL Acute symptomatic anemia Leukocytosis Reactive mediastinal lymphadenopathy Hiatal hernia, small. Nicotine dependence Plan: Supplemental oxygen PRN Titrate to keep O2 sats above 92%. Obtain CT-guided bone marrow biopsy Hematology recs appreciated. Monitor hemoglobin Transfuse if less than 7.0 g/dL. CTA demonstrated no e/o pulmonary embolism. RUL opacities, reactive mediastinal lymphadenopathy. LLL ground-glass pulmonary nodule. Repeat CT chest in 6-12 months for surveillance. Continue bronchodilators Continue antibiotics Follow up cultures Monitor WBC Monitor renal function. Monitor electrolytes. Supplement as necessary. Monitor ins and outs. Smoking cessation discussed for greater than 10 minutes DVT prophylaxis. Prognosis: Poor given patient's multiple co-morbidities. Rest of plan per hospitalist and other consultants. Thank you, Dr. Seymour, for allowing me to participate in this patient's care. Further recommendations will depend on the patient's clinical course. Please do not hesitate to contact me if you have any questions or concerns. This medical document was created using an electronic medical record system with [employer] dictation system. Although these documentations are being carefully reviewed, there may still be some phonetic and typographical changes. The errors are purely typographical, due to imperfection on the software program, and do not reflect any compromise in the patient's medical care. Plan discussed with: Patient, Other (RN/MD Seymour) EMI DEL ANGEL MD Sep 16, 2024 22:57
[2024-09-17 00:48] LABS: Hematocrit 24.5 % (41.0-53.0); Hemoglobin 8.2 g/dL (13.5-17.5)
[2024-09-17 01:00] VITALS: BP 120/56; PULSE 83; RESP 18; TEMP 97.7; O2SAT 97
[2024-09-17] MEDS ORDERED: hydroxyUREA 500 MG CAP PO SCH (10:00)
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
--- NOTE | 2024-09-17 15:20 | ECG ---
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
--- NOTE | 2024-09-18 20:41 | DVHPN2 ---
Progress Note - Dictate Date Seen: Sep 17, 2024 Medical Necessity Reason Pt with a Central, PICC or Fol: No Subjective Patient Seen and examined at bedside. Overnight events reviewed. No new complaints. vital signs Vital Sign Date Time Temp Pulse Resp B/P (MAP) Pulse Ox O2 Delivery O2 Flow Rate FiO2 09/17/24 01:00 97.7 83 18 120/56 (77) 97 97.7 09/16/24 23:31 Nasal Cannula 2.0 09/16/24 23:31 28 objective Gen.: Patient lying in bed in no apparent distress. Breathing on room air. Head: Normocephalic, atraumatic. Eyes: EOMI/PERRLA. Ears: Normal hearing. Normal anatomy. Neck/trachea: Trachea midline, supple. Nose: Normal external anatomy. Mouth: Moist mucous membranes. Chest: Decreased air entry bilaterally. No wheezing or rhonchi. Cardiovascular: Positive S1, positive S2. Regular rate and rhythm. Abdomen: Positive bowel sounds in all 4 quadrants. Soft, non-tender, non- distended. : Deferred. Rectal: Deferred. Skin: Warm, dry. Intact. Extremities: 2+ radial pulses bilaterally. No lower extremity edema. Neuro: Awake, alert, oriented x3. No gross motor or sensory deficits. Cranial nerves II through XII intact. Gait not assessed. laboratory and microbiology Laboratory Tests 09/17/24 00:15 09/16/24 08:10 Test 09/16/24 08:10 Range/Units Serum Glucose 117 H 74-106 mg/dL Assessment/Plan Impression: Acute hypoxic respiratory failure Pneumonia, likely gram negative Pulmonary nodule , LLL Acute symptomatic anemia Leukocytosis Reactive mediastinal lymphadenopathy Hiatal hernia, small. Nicotine dependence Plan: Supplemental oxygen PRN On 2 liters/minute via nasal cannula Titrate to keep O2 sats above 92%. Obtain CT-guided bone marrow biopsy Hematology recs appreciated. Monitor hemoglobin Transfuse if less than 7.0 g/dL. CTA demonstrated no e/o pulmonary embolism. RUL opacities, reactive mediastinal lymphadenopathy. LLL ground-glass pulmonary nodule. Repeat CT chest in 6-12 months for surveillance. Continue bronchodilators Continue antibiotics Follow up cultures Monitor WBC Monitor renal function. Monitor electrolytes. Supplement as necessary. Monitor ins and outs. Smoking cessation discussed for greater than 10 minutes DVT prophylaxis. Prognosis: Poor given patient's multiple co-morbidities. Rest of plan per hospitalist and other consultants. Thank you, Dr. Seymour, for allowing me to participate in this patient's care. Further recommendations will depend on the patient's clinical course. Please do not hesitate to contact me if you have any questions or concerns. This medical document was created using an electronic medical record system with [employer] dictation system. Although these documentations are being carefully reviewed, there may still be some phonetic and typographical changes. The errors are purely typographical, due to imperfection on the software program, and do not reflect any compromise in the patient's medical care. Plan discussed with: Patient, Other (RN, MD) CC Plasma Assessment Blood Product Administration S: [id number] EMI DEL ANGEL MD Sep 18, 2024 20:41
== END 2024-09-17 01:40 | disposition short-term general hospital (02) | DRG 133 ==
LOC: ER 13:44 → TELE 22:06 → TELE-WESTW 09-16 18:00
PROVIDERS: ADMIT Internal Medicine; ATTEND Internal Medicine
PROC: 30233N1 Transfusion of Nonautologous Red Blood Cells into Peripheral Vein, Percutaneous Approach (ICD-10-PCS; 2024-09-15)
PROC: 07DT3ZX Extraction of Bone Marrow, Percutaneous Approach, Diagnostic (ICD-10-PCS; principal; 2024-09-16)
PROC: 079T3ZX Drainage of Bone Marrow, Percutaneous Approach, Diagnostic (ICD-10-PCS; 2024-09-16)
DX: J96.01 Acute respiratory failure with hypoxia (principal); C92.00 Acute myeloblastic leukemia, not having achieved remission; D69.6 Thrombocytopenia, unspecified; J44.0 Chronic obstructive pulmonary disease with (acute) lower respiratory infection; Z20.822 Contact with and (suspected) exposure to COVID-19; K44.9 Diaphragmatic hernia without obstruction or gangrene; R59.0 Localized enlarged lymph nodes; F17.210 Nicotine dependence, cigarettes, uncomplicated; Z86.718 Personal history of other venous thrombosis and embolism; Z88.0 Allergy status to penicillin; Z79.01 Long term (current) use of anticoagulants
CPT/HCPCS: 10005; 36415; 71045; 71275; 72192; 77012; 80048; 80053; 81001; 82270; 82607; 82746; 83605; 83615; 84443; 84484; 84550; 85007; 85014; 85018; 85027; 85060; 85379; 85610; 85730; 86850; 86900; 86901; 86920; 87040; 87426; 87804; 93005; 93306; 94640; 99291; G0378; J2003; J2250; J2543; J3490